=== PATIENT | female | born 1990 | race African-American/Black ===

== ENCOUNTER 2021-06-18 22:44 | Emergency (ER) | payer MEDICAID ==
--- NOTE | 2021-06-18 22:48 | NUR ---
NIL X 1 WHEN CALLED FOR TRIAGE.
--- NOTE | 2021-06-18 22:59 | NUR ---
NIL X 2 WHEN CALLED FOR TRIAGE.
--- NOTE | 2021-06-18 23:22 | NUR ---
NIL X 3 WHEN CALLED FROM TRIAGE.
== END 2021-06-18 23:24 | disposition left against medical advice (07) ==
LOC: ED 23:00
DX: R10.9 Unspecified abdominal pain (principal); Z53.21 Procedure and treatment not carried out due to patient leaving prior to being seen by health care provider